=== PATIENT | female | born 1965 | race Caucasian/White ===

== ENCOUNTER 2020-09-21 20:10 | Emergency (ER) | payer BC, OTHER ==
[2020-09-21 20:49] VITALS: BP 102/60; PULSE 77; TEMP 98.1; BMI 27.3
== END 2020-09-21 21:43 | disposition home or self-care (01) ==
LOC: FER 20:10
DX: S93.401A Sprain of unspecified ligament of right ankle, initial encounter (principal)
CPT/HCPCS: 73610-TC-RT-FY; 99283-25

== ENCOUNTER 2022-07-04 19:49 | Emergency (ER) | payer BC ==
[2022-07-04 20:07] VITALS: BP 115/70; PULSE 92; RESP 24; BMI 30.2
[2022-07-04 20:20] VITALS: TEMP 97.6
[2022-07-04] MEDS ORDERED: SODIUM CHLORIDE 1,000 ML IV STA ×2 (20:37→22:01)
[2022-07-04] MEDS ORDERED: KETOROLAC TROMETHAMINE 30 MG/1 ML VIAL IVPUSH ONE (20:39)
[2022-07-04] MEDS ORDERED: ONDANSETRON 4 MG/2 ML VIAL IVPUSH ONE (20:43)
[2022-07-04] MEDS ORDERED: ONDANSETRON 4 MG/2 ML VIAL ONE (20:44)
[2022-07-04 20:57] LABS: HEMATOCRIT 41.8 % (32.4-45.2); HEMOGLOBIN 14.6 G/dL (10.7-15.3); MEAN CELL VOLUME 88.6 fl (80-96); MEAN PLT VOLUME 8.9 fl (7.5-11.1); PLATELET COUNT 271.9 10^3/uL (134-434); RBC 4.72 10^6/uL (3.60-5.2); RDW 13.4 % (11.6-15.6)
[2022-07-04 21:06] LABS: ALBUMIN 4.5 g/dl (3.4-5.0); BILIRUBIN,TOTAL 0.6 mg/dl (0.2-1); CALCIUM 9.8 mg/dl (8.5-10); CREATININE 0.8 mg/dl (0.55-1.3); POTASSIUM 3.6 mmol/L (3.5-5.1); TOT PROT 8.1 g/dl (6.4-8.2)
[2022-07-04 21:07] LABS: PLATELET ESTIMATE ADEQUATE
[2022-07-04] MEDS ORDERED: ACETAMINOPHEN INJECTION 100 ML IVPB ONE (21:16)
[2022-07-04] MEDS ORDERED: ACETAMINOPHEN 1000 MG/100 ML BAG IVPB ONE (21:16)
[2022-07-04] MEDS ORDERED: ONDANSETRON *ODT* 4 MG TABLET ONE (22:38)
== END 2022-07-04 22:43 | disposition home or self-care (01) ==
LOC: FER 19:49
PROC: 3E033NZ Introduction of Analgesics, Hypnotics, Sedatives into Peripheral Vein, Percutaneous Approach (ICD-10-PCS; principal; 2022-07-04)
PROC: 3E033GC Introduction of Other Therapeutic Substance into Peripheral Vein, Percutaneous Approach (ICD-10-PCS; 2022-07-04)
PROC: 3E0337Z Introduction of Electrolytic and Water Balance Substance into Peripheral Vein, Percutaneous Approach (ICD-10-PCS; 2022-07-04)
PROC: 3E0337Z Introduction of Electrolytic and Water Balance Substance into Peripheral Vein, Percutaneous Approach (ICD-10-PCS; 2022-07-04)
DX: R11.2 Nausea with vomiting, unspecified (principal); R51.9 Headache, unspecified; R19.7 Diarrhea, unspecified; K52.9 Noninfective gastroenteritis and colitis, unspecified; R68.2 Dry mouth, unspecified
CPT/HCPCS: 36415; 70450-TC; 80053; 85027; 99284-25